=== PATIENT | female | born 1985 | race Caucasian/White ===

== ENCOUNTER → 2020-02-26 | Outpatient (CLI) | payer BC ==
[~2020-02-26] MED LIST: AMOX500 PO; AMOX875 PO; BIRTH CONTROL PILLS; CEPH500 PO; CIPR500 PO; HYDACE5 PO; MULVITMINE PO; PROM25 PO
== END ==
LOC: LAB SHORT 19:56 → LAB 19:56
DX: L81.4 Other melanin hyperpigmentation (principal); L90.5 Scar conditions and fibrosis of skin; L08.9 Local infection of the skin and subcutaneous tissue, unspecified; Z48.02 Encounter for removal of sutures
CPT/HCPCS: 87070; 87077; 87186; 87205

== ENCOUNTER → 2023-06-19 | Outpatient (CLI) | payer BC ==
[2023-06-23 08:34] LABS: HPV GENOTYPE 16 Not Detected; HPV GENOTYPE 18 Not Detected; HPV HIGH RISK Not Detected; HPV SOURCE Cervical/Vag
== END ==
LOC: LAB 09:48 → LAB SHORT 09:48
PROVIDERS: Obstetrics & Gynecology
DX: Z01.419 Encounter for gynecological examination (general) (routine) without abnormal findings (principal)
CPT/HCPCS: 87624; G0123